=== PATIENT | female | born 1965 | race Two or more races ===

== ENCOUNTER 2016-07-20 08:25 | Emergency (ER) | payer MEDICAID ==
[~2016-07-20] VITALS: Ht 162.6 cm; Wt 86.2 kg
[2016-07-20 08:31] VITALS: BP 135/97
[2016-07-20] MEDS: LIDOCAINE SOLN 4% 50 ML BOTTLE TP ONE (08:57)
== END 2016-07-20 10:11 | disposition home or self-care (01) ==
LOC: ER 08:28
DX: T16.2XXA Foreign body in left ear, initial encounter (principal); X58.XXXA Exposure to other specified factors, initial encounter; Y92.89 Other specified places as the place of occurrence of the external cause; Y93.89 Activity, other specified; Y99.8 Other external cause status
CPT/HCPCS: A4606; Z7610